=== PATIENT | female | born 2000 | race Two or more races ===

== ENCOUNTER 2020-01-30 11:36 | Emergency (ER) | payer OTHER ==
[~2020-01-30] VITALS: Ht 157.5 cm; Wt 50.0 kg
[2020-01-30 11:41] VITALS: BP 108/76
== END 2020-01-30 13:30 | disposition home or self-care (01) ==
LOC: EMS 11:36
DX: O26.891 Other specified pregnancy related conditions, first trimester (principal); Z02.89 Encounter for other administrative examinations; Z3A.01 Less than 8 weeks gestation of pregnancy
CPT/HCPCS: 71045-TC